=== PATIENT | female | born 1950 | race Caucasian/White ===

== ENCOUNTER → 2023-11-09 14:01 | Outpatient (REF) | payer MEDICARE, OTHER, SELFPAY | LOC: WOUND 14:01 | PROVIDERS: ATTENDING PHYSICIAN Surgery; REFERRING PHYSICIAN Family Medicine | DX: S81.812A Laceration without foreign body, left lower leg, initial encounter (principal); I87.2 Venous insufficiency (chronic) (peripheral); X58.XXXA Exposure to other specified factors, initial encounter | CPT/HCPCS: 99212 ==

== ENCOUNTER → 2023-12-01 13:39 | Outpatient (REF) | payer MEDICARE, OTHER, SELFPAY | LOC: WOUND 13:39 | PROVIDERS: ATTENDING PHYSICIAN Surgery; REFERRING PHYSICIAN Family Medicine | DX: S81.812D Laceration without foreign body, left lower leg, subsequent encounter (principal); I87.2 Venous insufficiency (chronic) (peripheral); X58.XXXA Exposure to other specified factors, initial encounter | CPT/HCPCS: 97597 ==

== ENCOUNTER → 2023-12-12 09:01 | Outpatient (REF) | payer MEDICARE, OTHER, SELFPAY | LOC: WOUND 09:01 | PROVIDERS: ATTENDING PHYSICIAN Surgery; REFERRING PHYSICIAN Family Medicine | DX: S81.812A Laceration without foreign body, left lower leg, initial encounter (principal); I87.2 Venous insufficiency (chronic) (peripheral); X58.XXXA Exposure to other specified factors, initial encounter | CPT/HCPCS: 99212 ==

== ENCOUNTER → 2024-05-08 11:04 | Outpatient (REF) | payer MEDICARE, OTHER, SELFPAY ==
[2024-05-08 12:20] LABS: % Basophils 0.5 % (0-2); % Eosinophils 0.6 % (0-6); % Immature Granulocytes 0.6 % (0-0.5); % Lymphocytes 14.7 % (20.5-51.1); % Monocytes 7.6 % (1.7-9.3); Absolute Basophils 0.1 10^3/uL (0-0.2); Absolute Eosinophils 0.1 10^3/uL (0-0.7); Absolute Immature Granulocytes 0.1 10^3/uL (0-0.05); Absolute Lymphocytes 1.4 10^3/uL (1.2-3.4); Absolute Monocytes 0.7 10^3/uL (0.1-0.6); Absolute Neutrophils 7.4 10^3/uL (1.4-6.5); Hematocrit 38.9 % (37.0-47.0); Mean Corp Hgb Conc. 30.8 g/dL (33.0-37.0); Mean Corpuscular Hgb 25.6 pg (27.0-31.0); Mean Corpuscular Volume 82.9 fL (81.0-99.0); Mean Platelet Volume 8.7 fL (7.4-10.4); Nucleated Red Blood Cells % 0 %; Platelet Count 414 10^3/uL (130-400); Red Blood Cell Count 4.69 10^6/uL (4.20-5.40); Red Cell Dist. Width 14.4 % (11.5-14.5); White Blood Cell Count 9.7 10^3/uL (4.8-10.8)
[2024-05-08 12:30] LABS: INR 1.01; PT 13.1 Sec (11.4-14.6)
[2024-05-08 12:32] LABS: ALT (SGPT) 16 U/L (0-35); APTT 26.5 Sec (23.4-35.0); AST (SGOT) 22 U/L (14-36); Albumin 4.2 g/dl (3.5-5.0); Alkaline Phosphatase 94 U/L (38-126); Blood Urea Nitrogen 26 mg/dl (7-17); Calcium 9.6 mg/dl (8.4-10.2); Carbon Dioxide 31 mmol/L (22-30); Chloride 99 mmol/L (98-107); Glucose 99 mg/dl (70-99); HDL Cholesterol 55 mg/dl; LDL Cholesterol, Calculated 163 mg/dl; Potassium 5.5 mmol/L (3.5-5.1); Sodium 136 mmol/L (135-145); Total Bilirubin 0.5 mg/dl (0.2-1.3); Total Cholesterol 238 mg/dl (50-199); Total Protein 6.8 g/dl (6.3-8.2); Triglyceride 100 mg/dl (10-149); Very Low Density Lipoprotein 20 mg/dl (0-30); eGFR > 60.00
[2024-05-08 14:33] LABS: Glycohemoglobin (HgbA1c) 5.8 % (4.0-5.6)
== END ==
LOC: REG 11:04
PROVIDERS: ATTENDING PHYSICIAN Physical Medicine & Rehabilitation; FAMILY PHYSICIAN Family Medicine
DX: Z01.812 Encounter for preprocedural laboratory examination (principal); E78.2 Mixed hyperlipidemia; R73.01 Impaired fasting glucose; I10 Essential (primary) hypertension; E66.01 Morbid (severe) obesity due to excess calories; E03.9 Hypothyroidism, unspecified; F11.20 Opioid dependence, uncomplicated
CPT/HCPCS: 36415; 80053; 80061; 83036; 85025; 85610; 85730

== ENCOUNTER → 2024-05-14 15:11 | Outpatient (REF) | payer MEDICARE, OTHER, SELFPAY ==
[2024-05-14 16:35] LABS: Blood Urea Nitrogen 32 mg/dl (7-17); Calcium 9.6 mg/dl (8.4-10.2); Carbon Dioxide 28 mmol/L (22-30); Chloride 99 mmol/L (98-107); Glucose 105 mg/dl (70-99); Potassium 5.2 mmol/L (3.5-5.1); Sodium 136 mmol/L (135-145); eGFR > 60.00
== END ==
LOC: REG 15:11
PROVIDERS: ATTENDING PHYSICIAN Family Medicine
DX: E87.5 Hyperkalemia (principal)
CPT/HCPCS: 36415; 80048

== ENCOUNTER → 2024-07-20 11:00 | Outpatient (REF) | payer MEDICARE, OTHER, SELFPAY ==
[2024-07-20 12:43] LABS: ALT (SGPT) 18 U/L (0-35); AST (SGOT) 26 U/L (14-36); Alkaline Phosphatase 104 U/L (38-126); Blood Urea Nitrogen 28 mg/dl (7-17); Calcium 9.5 mg/dl (8.4-10.2); Carbon Dioxide 33 mmol/L (22-30); Chloride 97 mmol/L (98-107); Glucose 97 mg/dl (70-99); Potassium 5.2 mmol/L (3.5-5.1); Sodium 139 mmol/L (135-145); Total Bilirubin 0.4 mg/dl (0.2-1.3); Total Protein 6.4 g/dl (6.3-8.2); eGFR 59.12
[2024-07-20 12:59] LABS: Free T4 1.46 ng/dl (0.78-2.19)
== END ==
LOC: REG 11:00
PROVIDERS: ATTENDING PHYSICIAN Internal Medicine Endocrinology, Diabetes & Metabolism; FAMILY PHYSICIAN Family Medicine; REFERRING PHYSICIAN Student in an Organized Health Care Education/Training Program
DX: R60.0 Localized edema (principal); E03.9 Hypothyroidism, unspecified
CPT/HCPCS: 36415; 80053; 84439; 84443

== ENCOUNTER → 2024-07-23 15:54 | Outpatient (REF) | payer MEDICARE, OTHER, SELFPAY | LOC: HWRCS 15:54 | PROVIDERS: ATTENDING PHYSICIAN Student in an Organized Health Care Education/Training Program; FAMILY PHYSICIAN Family Medicine | DX: R60.0 Localized edema (principal) | CPT/HCPCS: 93306 ==

== ENCOUNTER → 2024-07-27 10:35 | Outpatient (REF) | payer MEDICARE, OTHER, SELFPAY | LOC: WDC 10:35 | PROVIDERS: ATTENDING PHYSICIAN Obstetrics & Gynecology Gynecology; FAMILY PHYSICIAN Family Medicine | DX: M47.894 Other spondylosis, thoracic region (principal); Z12.31 Encounter for screening mammogram for malignant neoplasm of breast | CPT/HCPCS: 72072 ==

== ENCOUNTER → 2024-08-13 15:23 | Outpatient (REF) | payer MEDICARE, OTHER, SELFPAY | LOC: RAD 15:23 | PROVIDERS: ATTENDING PHYSICIAN Family Medicine | DX: R60.0 Localized edema (principal) | CPT/HCPCS: 93970 ==

== ENCOUNTER 2024-08-31 16:51 | Emergency (ER) | payer MEDICARE, OTHER, SELFPAY ==
[2024-08-31 17:10] VITALS: BP 117/67
[2024-08-31 17:47] LABS: % Basophils 0.5 % (0-2); % Eosinophils 1.1 % (0-6); % Immature Granulocytes 0.5 % (0-0.5); % Lymphocytes 13.9 % (20.5-51.1); % Monocytes 7.3 % (1.7-9.3); % Neutrophils 76.7 % (42.2-75.2); Absolute Basophils 0.1 10^3/uL (0-0.2); Absolute Eosinophils 0.1 10^3/uL (0-0.7); Absolute Immature Granulocytes 0.1 10^3/uL (0-0.05); Absolute Lymphocytes 1.5 10^3/uL (1.2-3.4); Absolute Monocytes 0.8 10^3/uL (0.1-0.6); Absolute Neutrophils 8.1 10^3/uL (1.4-6.5); Hematocrit 39.5 % (37.0-47.0); Hemoglobin 12.6 g/dL (12.0-16.0); Mean Corp Hgb Conc. 31.9 g/dL (33.0-37.0); Mean Corpuscular Hgb 25.6 pg (27.0-31.0); Mean Corpuscular Volume 80.3 fL (81.0-99.0); Mean Platelet Volume 8.7 fL (7.4-10.4); Nucleated Red Blood Cells % 0 %; Platelet Count 375 10^3/uL (130-400); Red Blood Cell Count 4.92 10^6/uL (4.20-5.40); Red Cell Dist. Width 13.9 % (11.5-14.5); White Blood Cell Count 10.6 10^3/uL (4.8-10.8)
[2024-08-31 18:00] LABS: ALT (SGPT) 18 U/L (0-35); AST (SGOT) 25 U/L (14-36); Albumin 4.4 g/dl (3.5-5.0); Alkaline Phosphatase 103 U/L (38-126); Blood Urea Nitrogen 34 mg/dl (7-17); Calcium 9.3 mg/dl (8.4-10.2); Carbon Dioxide 28 mmol/L (22-30); Chloride 100 mmol/L (98-107); Glucose 144 mg/dl (70-99); Potassium 5.3 mmol/L (3.5-5.1); Sodium 141 mmol/L (135-145); Total Bilirubin 0.2 mg/dl (0.2-1.3); eGFR > 60.00
[2024-08-31 18:13] VITALS: BP 131/76
[2024-08-31] MEDS: TYLENOL 1000 MG PO (18:32)
[2024-08-31 20:00] VITALS: BP 124/110
--- NOTE | 2024-08-31 20:46 | ED.GENMED ---
History of Present Illness
General
Chief Complaint: Fainting Sensation
Source: patient
Exam Limitations: none
Time Seen by Provider: 08/31/24 17:36
Nursing documentation reviewed up to this point in time: agreed with
History of Present Illness
History of Present Illness:
74 yo female with history of HTN, HLD, GERD, colitis, hypoparathyroid states at 445 this afternoon she was out with a friend, they went to lunch and she had some strength that did not taste right so she did not eat at all. Afterwards she drove her
friend home and as she was headed to her home she developed 'really bad stomach cramps,' with the urge to defecate. She was trying to make it home but then her vision started to fade, she developed a headache on the left side and her vision was
'going pinpoint,' and she was 'breathing really fast.' She states she felt faint so she pulled over to the side of the road and ran off the road a little as her vision was getting worse. She called 911.
She states her abdominal pain then was 10/10 and now is starting to come back at 5/10 'rolling across my stomach, my whole mid section.'
She did have a normal bowel movement on arrival and did feel a little better.
She now has a mild headache, the faint feeling has subsided
Past History
Past History
ED Past Medical History: Cancer (Melanoma left forearm), GERD (GERD, Ware's esophagus), HTN, Hypercholesterolemia, Other (Hyperparathyroidism, chronic low back pain/narcotic dependent) and Other (Morbid obesity)
ED Past Surgical History: Appendectomy, Gynecological (Hysterectomy), Orthopedic (Right knee), Tonsilectomy and Other (Melanoma removal left forearm)
Social History
Tobacco: Non-smoker
Alcohol: Occasional
Drug: None
Personal:
Living: with family
Employment: Retired
Family History
Family History: CAD and Other (Esophageal cancer)
Review of Systems
Review of Systems
Allergies reviewed?: Yes
All Other Systems: ROS reviewed and negative except as documented in HPI and ROS
Constitutional: Reports fatigue; Denies fever
Respiratory: Denies trouble breathing
Cardiac: Denies chest pain, diaphoresis, palpitations or syncope
ABD/GI: Reports abdominal pain and other (urge to defecate); Denies nausea, vomiting, diarrhea or constipated
: Reports no symptoms
Musculoskeletal: Reports no symptoms
Skin: Reports no symptoms
Neurological: Reports headache; Denies dizzy, weakness or numbness
Phy Exam
Physical Exam
Physical Exam:
GENERAL: No acute distress. A&Ox3.
CONSTITUTIONAL: Afebrile.
EYES: PERRL, conjunctivae normal
ENMT: moist mucus membranes, Pharynx nl
RESPIRATORY: Regular respirations, nonlabored, lungs clear.
CARDIOVASCULAR: Regular rate and rhythm, no murmurs, no rubs.
GI: Soft, nontender, normal BS
MUSCULOSKELETAL: Moves with ease. Well perfused.
SKIN: Warm, dry, pink
PSYCH: Normal mood and affect. Well kept, interactive and appropriate
NEUROLOGIC: Awake, alert and oriented. No focal neurological deficits
Course
Orders/Labs/Results
Orders:
Orders
08/31/24 17:20
Electrocardiogram (*1) Urgent
Reason for Study: Vertigo / Dizzy
EKG- Treatment ONCE
08/31/24 17:32
Complete Blood Count/With Diff Urgent
Comprehensive Metabolic Panel Urgent
08/31/24 18:21
CT Abd/pel Without Iv Or Oral Urgent
Comment:
Reason For Exam: abd pain 'like when I had my kidney stone'
08/31/24 18:24
Acetaminophen [Tylenol] 1,000 mg PO NOW STA
08/31/24 20:41
Urinalysis Reflex To Culture Urgent
Date Specimen was Collected: 08/31/24
Time Specimen was Collected: 18:29
Urine Microscopic Reflex Cult Urgent
Urine Culture Urgent
DESTIN Source: U
Specimen Description:
Date Specimen was Collected: 08/31/24
Time Specimen was Collected: 18:29
08/31/24 21:28
CT Head W/o Iv Contrast Urgent
Comment:
Reason For Exam: near syncope, at MD daughter's request
08/31/24 22:49
Cephalexin Monohydrate [Keflex] 500 mg PO NOW STA
Abnormal Lab Results
08/31/24 08/31/24
17:32 20:41
MCV 80.3 L fL
(81.0-99.0)
MCH 25.6 L pg
(27.0-31.0)
MCHC 31.9 L g/dL
(33.0-37.0)
Abs Immat Gran (auto) 0.1 H 10^3/uL
(0-0.05)
Absolute Neuts (auto) 8.1 H 10^3/uL
(1.4-6.5)
Absolute Monos (auto) 0.8 H 10^3/uL
(0.1-0.6)
Neutrophils % 76.7 H %
(42.2-75.2)
Lymphocytes % 13.9 L %
(20.5-51.1)
Potassium 5.3 H mmol/L
(3.5-5.1)
BUN 34 H mg/dl
(7-17)
Glucose 144 H mg/dl
(70-99)
Leukocyte Esterase Rfl 2+ A
(Negative)
Urine WBC (Reflex) 30-40 A /HPF
(0-5)
Urine Bacteria (Reflex) Few A
(Negative)
08/31/24 17:32
08/31/24 17:32
Vital Signs
Initial and Last Documented VS:
Initial Vital Signs
Temp Pulse Resp BP Pulse Ox
97.5 F 76 18 117/67 98
08/31/24 17:10 08/31/24 17:10 08/31/24 17:10 08/31/24 17:10 08/31/24 17:10
Last Documented Vital Signs
Temp Pulse Resp BP Pulse Ox
97.5 F 76 18 129/58 95
08/31/24 17:10 08/31/24 22:32 08/31/24 17:10 08/31/24 22:00 08/31/24 22:15
MDM/Problems Addressed
Differential Diagnosis Includes:
Vasovagal episode, food poisining, Colitis, Kidney stone
MDM/Problems Addressed:
74 yo female with history of HTN, HLD, GERD, colitis, hypoparathyroid states at 445 this afternoon she was out with a friend, they went to lunch and she had some strength that did not taste right so she did not eat at all. Afterwards she drove her
friend home and as she was headed to her home she developed 'really bad stomach cramps,' with the urge to defecate. She was trying to make it home but then her vision started to fade, she developed a headache on the left side and her vision was
'going pinpoint,' and she was 'breathing really fast.' She states she felt faint so she pulled over to the side of the road and ran off the road a little as her vision was getting worse. She called 911.
She states her abdominal pain then was 10/10 and now is starting to come back at 5/10 'rolling across my stomach, my whole mid section.'
She did have a normal bowel movement on arrival and did feel a little better.
She now has a mild headache, the faint feeling has subsided
Pt states she had the exact same pain when she had a kidney stone and had to be hospitalized.
She has also had colitis in the past
EKG: NSR
CBC normal
CMP shows BUN 34 otherwise normal
Urine WBC 30-40, +Leukocytes, Neg Nitrites, few bacteria, 21-25 squams
9:[address] abd/pelvis plain: Radiology report read: IMPRESSION:
1. No significant acute abnormality identified in the abdomen or pelvis, within the limits of unenhanced CT, as described above.
Pt has been OOB and ambulating well, Tolerating po fluids
Ready to discharge pt after discussing all results. Pt states she spoke with her daughter who is a doctor and want a head CT.
10:[address] shows no abnormality. Pt and notified.
Rx for Keflex sent to her pharmacy for UTI.
Final diagnosis:
Vaso vagal episode, UTI, mild dehydration
*EKG
EKG Intrepretation Date: 08/31/24
Interpretation: normal
Rate: normal
Rhythm: sinus arrhythmia
[place]: normal axis
Interval: normal interval
QRS Pattern: normal QRS
Ischemia: no ischemia
*Critical Care Note
Total Time (30-74mins, 75-104mins- exclusive of procedures): Not Applicable
ED Attending Note
-
Portions of this chart may have been created with voice recognition software.� Occasional wrong word or��sound alike� substitutions may have occurred due to the inherent limitations of voice recognition software.
Discharge Plan
Departure
Patient Disposition: Home (Routine Discharge)
Date of Disposition: 08/31/24
Time of Disposition: 22:47
Patient with high blood pressure during this ER visit?: No
Condition: Good
Discharge Problem:
Vasovagal episode, Acute UTI, Mild dehydration
Instructions: Vasovagal Response (DC), Dehydration, Adult ED, Urinary Tract Infection, Adult ED
Prescriptions:
No Action
pravastatin 10 MG tablet
30 mg PO HS
fentanyl 25 MCG patch 72 hour
25 mcg transdermal Q72H
Patient Comments:
PATIENT CHEMIST FOOD ON 08/17/21 #10, PATIENT SAID SHE WENT TO PUT ONE ON TODAY 09/11/21 BUT SHE LOST IT IN THE SHOWER
cholecalciferol (vitamin D3) 2,000 UNIT tablet
2,000 unit PO DAILY
docusate sodium 100 MG capsule
200 mg PO DAILY
hydrocodone-acetaminophen 1 EACH tablet
1 tab PO BIDPRN PRN (Reason: MODERATE PAIN)
Patient Comments:
PATIENT CHEMIST FOOD ON 08/17/21 #60
triamterene-hydrochlorothiazid 37.5 MG/25 MG tablet
1 tab PO DAILY
levothyroxine 75 MCG tablet
75 mcg PO SUMOTUTHFRSA
lisinopril 20 MG tablet
20 mg PO DAILY
omeprazole 40 MG capsule,delayed release(DR/EC)
40 mg PO DAILY
famotidine 20 MG tablet
20 mg PO HS
calcium carbonate [Antacid (calcium carbonate)] 1 TABLET tablet,chewable
1 tab PO MEALS
multivitamin with folic acid [Tab-A-Claudia] 1 TABLET tablet
1 tab PO DAILY
metronidazole 500 MG tablet
500 mg PO Q8 Qty: 21 0RF
levofloxacin 750 MG tablet
750 mg PO DAILY Qty: 7 0RF
prednisone 20 mg tablet
40 mg PO DAILY 7 Days Qty: 14 0RF
furosemide [Lasix] 20 mg tablet
20 mg PO DAILY Qty: 10 0RF
cephalexin 500 mg capsule
500 mg PO TID 10 Days Qty: 30 0RF
Referrals:
Jacob Landry MD [Family Provider] - Call in 1-3 days for appt
Activity Restrictions/Additional Instructions:
As we discussed, you most likely had a vasovagal episode due to your abdominal pain and urge to move your bowels.
Your workup here shows mild dehydration, urinary tract infection.
Your head CT is normal.
Drink at least 8 eight ounce glasses of water/fluid daily
I sent a prescription for Keflex antibiotic to your pharmacy, start it tomorrow as you were given a dose here tonight.
Interventions
Interventions:
*Risk Screen - Suicide Last Done: 08/31/24 18:20
*General Assessment Last Done: 08/31/24 18:20
*Neglect/Abuse Screening Last Done: 08/31/24 18:20
ED- Fall Risk Assessment Last Done: 08/31/24 18:18
*ED COVID-19 Vaccine History Last Done: 08/31/24 18:20
*Nursing Disposition Last Done: 08/31/24 23:01
ED- Cardiac Assessment Last Done: 08/31/24 18:18
ED- Neurological Assessment Last Done: 08/31/24 18:18
Discharge Date and Time
Discharge Date/Time: 08/31/24 23:01
Print Language: GUAMANIAN
[2024-08-31 20:55] LABS: Urine Albumin Trace (Neg - Trace); Urine Bilirubin Negative (Negative); Urine Character Clear (Clear); Urine Color Yellow; Urine Glucose Negative (Negative); Urine Ketone Negative (Negative); Urine Leukocyte 2+ (Negative); Urine Nitrite Negative (Negative); Urine Occult Blood Negative (Negative); Urine Urobilinogen Negative (Neg - 1+); Urine pH 6.5 (5.0-9.0)
[2024-08-31 21:00] VITALS: BP 135/79
[2024-08-31 21:03] LABS: Urine Squamous Cell 21-25 /LPF (Few)
[2024-08-31 21:04] LABS: Urine White Cell 30-40 /HPF (0-5)
[2024-08-31 21:05] LABS: Urine Bacteria Few (Negative); Urine Red Blood Cell None Seen /HPF (0-2)
[2024-08-31 22:00] VITALS: BP 129/58
[2024-08-31] MEDS: KEFLEX 500 MG PO (22:54)
== END 2024-08-31 23:01 | disposition home or self-care (01) ==
LOC: EMR 16:51
PROVIDERS: Registered Nurse; EMERGENCY PHYSICIAN Emergency Medicine; FAMILY PHYSICIAN Family Medicine
DX: R55 Syncope and collapse (principal); R10.9 Unspecified abdominal pain; R11.0 Nausea; R51.9 Headache, unspecified; E86.0 Dehydration; N39.0 Urinary tract infection, site not specified; I10 Essential (primary) hypertension; K21.9 Gastro-esophageal reflux disease without esophagitis; K52.9 Noninfective gastroenteritis and colitis, unspecified; E20.9 Hypoparathyroidism, unspecified; K22.70 Barrett's esophagus without dysplasia; E78.00 Pure hypercholesterolemia, unspecified; E66.01 Morbid (severe) obesity due to excess calories; G89.29 Other chronic pain; M54.50 Low back pain, unspecified; M19.90 Unspecified osteoarthritis, unspecified site; Z85.820 Personal history of malignant melanoma of skin; Z87.442 Personal history of urinary calculi; Z86.16 Personal history of COVID-19; Z88.8 Allergy status to other drugs, medicaments and biological substances; Z91.041 Radiographic dye allergy status
CPT/HCPCS: 99285; 70450; 74176; 80053; 81003; 81015; 85025; 87086; 93005

== ENCOUNTER → 2024-10-15 10:41 | Outpatient (REF) | payer MEDICARE, OTHER, SELFPAY ==
[2024-10-15 11:56] LABS: ALT (SGPT) 22 U/L (0-35); AST (SGOT) 25 U/L (14-36); Albumin 3.9 g/dl (3.5-5.0); Alkaline Phosphatase 105 U/L (38-126); Blood Urea Nitrogen 27 mg/dl (7-17); Calcium 9.1 mg/dl (8.4-10.2); Carbon Dioxide 32 mmol/L (22-30); Chloride 101 mmol/L (98-107); Glucose 100 mg/dl (70-99); Potassium 5.2 mmol/L (3.5-5.1); Sodium 139 mmol/L (135-145); Total Bilirubin 0.4 mg/dl (0.2-1.3); Total Protein 6.4 g/dl (6.3-8.2); eGFR > 60.00
== END ==
LOC: REG 10:41
PROVIDERS: ATTENDING PHYSICIAN Family Medicine; REFERRING PHYSICIAN Neurological Surgery
DX: E78.2 Mixed hyperlipidemia (principal)
CPT/HCPCS: 36415; 80053

== ENCOUNTER → 2025-02-06 07:25 | Outpatient (REF) | payer MEDICARE, OTHER, SELFPAY ==
[2025-02-06 09:08] LABS: ALT (SGPT) 19 U/L (0-35); AST (SGOT) 20 U/L (14-36); Albumin 4.1 g/dl (3.5-5.0); Alkaline Phosphatase 105 U/L (38-126); Blood Urea Nitrogen 33 mg/dl (7-17); Calcium 9.4 mg/dl (8.4-10.2); Carbon Dioxide 27 mmol/L (22-30); Chloride 104 mmol/L (98-107); Glucose 101 mg/dl (70-99); HDL Cholesterol 41 mg/dl; Potassium 4.8 mmol/L (3.5-5.1); Sodium 139 mmol/L (135-145); Total Bilirubin 0.5 mg/dl (0.2-1.3); Total Cholesterol 179 mg/dl (50-199); Total Protein 6.5 g/dl (6.3-8.2); eGFR > 60.00
[2025-02-06 11:10] LABS: LDL Cholesterol, Calculated 109 mg/dl; Triglyceride 147 mg/dl (10-149); Very Low Density Lipoprotein 29 mg/dl (0-30)
== END ==
LOC: REG 07:25
PROVIDERS: ATTENDING PHYSICIAN Family Medicine
DX: R73.01 Impaired fasting glucose (principal); E78.2 Mixed hyperlipidemia
CPT/HCPCS: 36415; 80053; 80061; 83036

== ENCOUNTER → 2025-07-22 09:47 | Outpatient (REF) | payer MEDICARE, OTHER, SELFPAY ==
[2025-07-22 12:02] LABS: ALT (SGPT) 21 U/L (0-35); AST (SGOT) 24 U/L (14-36); Albumin 4.3 g/dl (3.5-5.0); Alkaline Phosphatase 93 U/L (38-126); Blood Urea Nitrogen 22 mg/dl (7-17); Calcium 9.7 mg/dl (8.4-10.2); Carbon Dioxide 29 mmol/L (22-30); Chloride 99 mmol/L (98-107); Glucose 97 mg/dl (70-99); HDL Cholesterol 52 mg/dl; LDL Cholesterol, Calculated 83 mg/dl; Potassium 5.3 mmol/L (3.5-5.1); Sodium 135 mmol/L (135-145); Total Protein 6.9 g/dl (6.3-8.2); Very Low Density Lipoprotein 21 mg/dl (0-30); eGFR > 60.00
[2025-07-22 12:27] LABS: TSH 2.04 uIU/ml (0.47-4.68)
[2025-07-22 14:16] LABS: Glycohemoglobin (HgbA1c) 5.9 % (4.0-5.6)
== END ==
LOC: REG 09:47
PROVIDERS: ATTENDING PHYSICIAN Internal Medicine Endocrinology, Diabetes & Metabolism; FAMILY PHYSICIAN Family Medicine
DX: E78.2 Mixed hyperlipidemia (principal); R73.01 Impaired fasting glucose; E03.9 Hypothyroidism, unspecified
CPT/HCPCS: 36415; 80053; 80061; 83036; 84439; 84443

== ENCOUNTER → 2025-09-12 15:00 | Outpatient (REF) | payer MEDICARE, OTHER, SELFPAY | LOC: HWWDC 15:00 | PROVIDERS: ATTENDING PHYSICIAN Obstetrics & Gynecology Gynecology; FAMILY PHYSICIAN Family Medicine | DX: Z12.31 Encounter for screening mammogram for malignant neoplasm of breast (principal) | CPT/HCPCS: 77063; 77067 ==